=== PATIENT | female | born 1985 ===

== ENCOUNTER 2018-07-04 17:35 | Emergency (ER) | END 2018-07-04 21:35 | disposition home or self-care (01) | DX: O26.892 Other specified pregnancy related conditions, second trimester (principal); E86.0 Dehydration; Z3A.18 18 weeks gestation of pregnancy | CPT/HCPCS: 36415; 76856; 80048; 80076; 81001; 85025; 87400; 87536; 87806; 96361; 96374; 96375; 96376; 99284; J1200 ×2; J2405; J2765 ==